=== PATIENT | male | born 1950 | race Caucasian/White ===

== ENCOUNTER 2019-08-14 21:35 | Outpatient (CLI) | payer MEDICARE ==
[2019-08-15 12:11] LABS: C DIFF ANTIGEN POSITIVE (NEGATIVE); C DIFF SPECIMEN=DIARRHEA? ACCEPTABLE; C DIFFICILE TOXINS A&B POSITIVE (Neg)
== END 2019-08-14 23:59 | disposition home or self-care (01) ==
LOC: LAB SPEC 21:35
PROVIDERS: ATTEND Internal Medicine
DX: N17.9 Acute kidney failure, unspecified (principal)
CPT/HCPCS: 87324; 87449

== ENCOUNTER 2019-09-08 09:13 | Day surgery (SDC) | payer MEDICARE, BC ==
[~2019-09-08] VITALS: Ht 188 cm; Wt 113.4 kg
[2019-09-08 09:35] VITALS: BP 126/65
[2019-09-08 10:14] LABS: BASOPHILS # (AUTO) 0.1 X10'3 (0-0.2); BASOPHILS % (AUTO) 0.8 % (0-1); EOSINOPHILS # (AUTO) 0.4 X10'3 (0-0.9); EOSINOPHILS % (AUTO) 3.2 % (0-6); HEMATOCRIT 36.4 % (42.0-52.0); HEMOGLOBIN 12.2 g/dl (14.0-17.9); LYMPHOCYTES # (AUTO) 1.3 X10'3 (1.1-4.8); LYMPHOCYTES % (AUTO) 9.6 % (21-51); MEAN CORPUSCULAR HGB CONC 33.6 g/dL (33.0-36.5); MEAN CORPUSCULAR VOLUME 92.3 FL (78-98); MEAN PLATELET VOLUME 9.1 FL (7.4-10.4); MONOCYTES # (AUTO) 1.2 X10'3 (0-0.9); MONOCYTES % (AUTO) 9.1 % (2-12); NEUTROPHILS # (AUTO) 10.3 X10'3 (1.8-7.7); NEUTROPHILS % (AUTO) 77.3 % (42-75); PLATELET COUNT 241 X10'3 (140-440); RED BLOOD COUNT 3.94 X10'6 (4.70-6.10); RED CELL DISTRIBUTION WIDTH 17.3 % (11.5-14.5); WHITE BLOOD COUNT 13.3 X10'3 (4.5-11.0)
[2019-09-08 10:26] LABS: ALBUMIN 3.3 G/DL (3.4-5.0); ANION GAP 11 (8-16); BLOOD UREA NITROGEN 11 MG/DL (7-18); BUN/CREATININE RATIO 2.8 (5.4-32.0); CALCIUM 9.5 MG/DL (8.5-10.1); CHLORIDE 101 MMOL/L (99-107); CREATININE 3.88 MG/DL (0.60-1.10); GLUCOSE 108 MG/DL (70-104); SODIUM 140 MMOL/L (135-145); TOTAL CARBON DIOXIDE 28.2 MMOL/L (24-32); eGFR 15 ML/MIN
[2019-09-08] MEDS ORDERED: AMIO200T61 PO (10:26)
[2019-09-08] MEDS ORDERED: FAMO20TA8 PO (10:27)
[2019-09-08] MEDS ORDERED: CARV3.1289 PO (10:27)
[2019-09-08 10:38] LABS: POTASSIUM 2.8 MMOL/L (3.5-5.1)
[2019-09-08] MEDS ORDERED: heparin 1,000unit/ml 10ml vial 10 ML ONE (13:39)
[2019-09-08] MEDS ORDERED: LIDOcaine 1%/PF 5ML 10 MG/ML VIAL ONE (13:39)
[2019-09-08 14:06] VITALS: BP 131/69
[2019-09-08 14:14] VITALS: BP_SYST 124; BP_SYST 131; BP_DIAS 69
== END 2019-09-08 14:30 | disposition home or self-care (01) ==
LOC: SSTAY O 09:13
PROVIDERS: ATTEND Radiology Vascular & Interventional Radiology
DX: T82.868A Thrombosis due to vascular prosthetic devices, implants and grafts, initial encounter (principal); Y83.2 Surgical operation with anastomosis, bypass or graft as the cause of abnormal reaction of the patient, or of later complication, without mention of misadventure at the time of the procedure; Y92.89 Other specified places as the place of occurrence of the external cause; Z79.01 Long term (current) use of anticoagulants
CPT/HCPCS: 36415; 36581; 77001; 80048; 85025; 85610; C1750; C1769; J1644; A9270

== ENCOUNTER 2021-01-06 09:01 | Emergency (ER) | payer MEDICARE, BC ==
[~2021-01-06] VITALS: Ht 188 cm; Wt 100.1 kg
[~2021-01-06 09:01] MED LIST: AMIO200T61 PO; CARV3.1289 PO; FAMO20TA8 PO
[2021-01-06 09:10] VITALS: BP 138/76
[2021-01-06] MEDS ORDERED: bacitracin 15gm ointment TP ONE (09:40)
[2021-01-06] MEDS ORDERED: LIDOcaine 1% W/epiNEPHrine 1:200,000 10ml vial IJ ONE (09:40)
[2021-01-06] MEDS ORDERED: TETanus/Pertussis (Acell)/Diphther VAC/PF (Tdap-Adult) 0.5ml syringe IMVAC ONE (09:40)
[2021-01-06] MEDS ORDERED: CEPH-585 PO (11:56)
== END 2021-01-06 12:40 | disposition home or self-care (01) ==
LOC: ER 09:01
DX: S61.012A Laceration without foreign body of left thumb without damage to nail, initial encounter (principal); N18.6 End stage renal disease; Z79.2 Long term (current) use of antibiotics; Z79.899 Other long term (current) drug therapy; Z99.2 Dependence on renal dialysis; W26.0XXA Contact with knife, initial encounter; Y93.89 Activity, other specified; Y92.89 Other specified places as the place of occurrence of the external cause; Y99.8 Other external cause status
CPT/HCPCS: 12042; 73130; 90471; 90715; 99284